=== PATIENT | female | born 1990 | race Caucasian/White ===

== ENCOUNTER → 2018-10-13 12:59 | Outpatient (CLI) | payer MEDICAID, SELFPAY ==
[2018-10-13 10:38] VITALS: BMI 30.9
[2018-10-13 13:23] LABS: Mucous, Urine 0 SEEN /hpf (<or=2+); Red Blood Cells-Urine 0 SEEN /hpf (0-5)
[2018-10-13 13:28] LABS: Color, Urine Yellow (Yellow); Glucose, Dipstick Normal (Normal); Ketone-Dipstick Negative (Negative); Leukocyte Esterase-Dipstick 25 /ul (Negative); Nitrite-Dipstick Positive (Negative); Occult Blood-Urine Negative /ul (Negative); Protein-Dipstick Negative (Negative); Urine Bilirubin Dipstick Negative (Negative); Urine Clarity Sl. Cloudy (Clear); Urine Urobilinogen Normal (Normal)
[2018-10-13 13:42] LABS: Bacteria 2+ /hpf (None Seen); Squamous Epithelial Cells - UA 5-10 SEEN /hpf (5-10); White Blood Cells 0-5 SEEN /hpf (0-5)
[2018-10-13 16:51] LABS: Probe Check PASS; Sample Adequacy Control PASS; Specimen Processing Control PASS; Trichomonas Vag DNA by PCR Negative (Negative)
== END ==
PROVIDERS: Family Provider Internal Medicine; PCP Internal Medicine; Referring Provider Nurse Practitioner Family; Visit Provider Nurse Practitioner Family
DX: N89.8 Other specified noninflammatory disorders of vagina (principal)
CPT/HCPCS: 81001; 87661

== ENCOUNTER → 2018-11-03 07:40 | Outpatient (CLI) | payer MEDICAID, SELFPAY ==
[2018-10-13 10:38] VITALS: BMI 30.9
[2018-11-03 09:30] LABS: Anion Gap 8 (5-15); BUN 16 mg/dL (7-18); BUN/Creat Ratio 19.4 RATIO (10-20); Calcium,Total 8.1 mg/dL (8.5-10.1); Chloride 106 mmol/L (98-107); Creatinine, Serum 0.82 mg/dL (0.55-1.02); EST Glomerular Filtration Rate 86 mL/min (>60); Est Glom Filt Rate - Afr Amer 104 mL/min (>60); Glucose 126 mg/dL (74-106); Potassium 3.7 mmol/L (3.5-5.1); Sodium Level 140 mmol/L (136-145)
== END ==
PROVIDERS: Family Provider Internal Medicine; PCP Internal Medicine; Referring Provider Nurse Practitioner Family; Visit Provider Nurse Practitioner Family
DX: I10 Essential (primary) hypertension (principal)
CPT/HCPCS: 36415; 80048

== ENCOUNTER → 2018-12-09 11:16 | Outpatient (CLI) | payer MEDICAID, SELFPAY ==
[2018-12-09 10:33] VITALS: BMI 33.8
[2018-12-09 12:26] LABS: Absolute Lymphocyte Count 2.87 X10^3/ul (0.83-4.51); Absolute Neutrophil Count 5.9 X10^3/uL (2.0-7.7); Basophil# 0.02 X10^3/uL; Basophil% 0.2 % (0-1); Hematocrit 40.5 % (37-47); Lymphocyte # 2.87 X10^3/ul (4.0); Mean Corp Hgb Conc 32.1 g/gl (32-36); Mean Corpuscular Hgb 27.8 pg (27.0-32.0); Mean Corpuscular Volume 86.7 fL (81-99); Mean Platelet Vol. 9.3 fl (6.2-12.0); Monocyte# 0.69 X10^3/uL; Monocyte% 7.2 % (0-10); Neutrophil # 5.87 X10^3/uL (2.7-7.7); Neutrophil % 61.3 % (47-70); Platelet Count 317 K/mm3 (150-450); RBC Distribution Width CV 13.5 % (11.6-14.6); RBC Distribution Width SD 42.7 fl (35.1-43.9); Red Blood Count 4.67 M/mm3 (4.2-5.4); White Blood Count 9.6 K/mm3 (4.4-11.0)
[2018-12-09 12:33] LABS: POSITIVE COUNT NO; POSITIVE DIFFERENTIAL NO; POSITIVE MORPHOLOGY NO
[2018-12-09 12:35] LABS: Anion Gap 5 (5-15); BUN 15 mg/dL (7-18); BUN/Creat Ratio 22.4 RATIO (10-20); Calcium,Total 8.5 mg/dL (8.5-10.1); Chloride 107 mmol/L (98-107); Creatinine, Serum 0.67 mg/dL (0.55-1.02); EST Glomerular Filtration Rate 109 mL/min (>60); Est Glom Filt Rate - Afr Amer 132 mL/min (>60); Glucose 92 mg/dL (74-106); Potassium 3.9 mmol/L (3.5-5.1); Sodium Level 139 mmol/L (136-145)
== END ==
PROVIDERS: Family Provider Internal Medicine; PCP Internal Medicine; Visit Provider Internal Medicine
DX: I10 Essential (primary) hypertension (principal); F31.9 Bipolar disorder, unspecified; Z51.81 Encounter for therapeutic drug level monitoring
CPT/HCPCS: 36415; 80048; 85025; 87210; 87491; 87591

== ENCOUNTER → 2018-12-15 08:16 | Outpatient (CLI) | payer MEDICAID, SELFPAY ==
[2018-12-09 10:33] VITALS: BMI 33.8
[2018-12-15 15:27] LABS: Chlamydia Trachomatis by PCR Negative (Negative); Neisserai gonorrhoeae by PCR Negative (Negative); Probe Check PASS
[2018-12-15 17:05] LABS: Probe Check PASS; Sample Adequacy Control PASS; Specimen Processing Control PASS; Trichomonas Vag DNA by PCR Negative (Negative)
== END ==
PROVIDERS: Nurse Practitioner Family; Family Provider Internal Medicine; PCP Internal Medicine; Visit Provider Internal Medicine
DX: Z72.51 High risk heterosexual behavior (principal)
CPT/HCPCS: 87491; 87591; 87661

== ENCOUNTER 2019-06-22 13:24 | Emergency (ER) | payer OTHER, SELFPAY ==
[2018-12-09 10:33] VITALS: BMI 33.8
[2019-06-22 13:25] VITALS: BP 142/95; PULSE 95; RESP 14; TEMP 36.8; O2SAT 97; BMI 35.6
--- NOTE | 2019-06-22 15:51 | CT_ITS ---
STUDY: CT ABDOMEN AND PELVIS WITHOUT CONTRAST REASON FOR EXAM: Female, 29 years old. Left flank pain RADIATION DOSAGE (If Supplied By Facility): CTDIvol = ( 12.94 ) mGy, DLP = ( 678.87 ) mGycm TECHNIQUE: Transaxial images were obtained from the dome of the diaphragm to the symphysis pubis without oral contrast, and without intravenous contrast. Sagittal and coronal images were reconstructed. Individualized dose optimization techniques were used for this CT. COMPARISON: None. FINDINGS: The visualized lung bases are unremarkable. The visualized portions of the heart are within normal limits. Normal liver. Normal gallbladder and extrahepatic biliary system. Normal spleen. Normal pancreas. Normal bilateral adrenal glands. Normal right kidney. Mild left perinephric stranding. No radiodense stones are identified. Normal visualized stomach. Normal small intestine. Increased stool throughout the colon. The appendix is visualized and appears normal. Normal abdominal aorta. Normal inferior vena cava. Normal retroperitoneum. Normal urinary bladder. Uterus normal. Tampon in the vaginal vault. Normal abdominal wall. Normal osseous structures. CT/Abdomen/Pelvis without Cont IMPRESSION: Mild left perinephric stranding. No radiodense urolithiasis. Possible pyelonephritis. Electronically Signed: Jamarcus Godoy MD at 18:46 EDT , Service support ,
--- NOTE | 2019-06-22 15:56 | ED.VIS.GEN ---
History of Present Illness Chief Complaint: Flank Pain Informant: Patient Onset: Days Context: Gradual Onset Timing: Intermittent Current Severity: Moderate Maximum Severity: Moderate Narrative: The patient presents to the emergency department with left-sided flank pain and abdominal pain. The patient was in her normal state of health. She states that she began to have some pain that she noticed on Wednesday. It was in her left upper back. She states since then, it will come and go but has been more constant over the past 24 hours. She denies any nausea or vomiting. She denies any hematuria. The patient does have history of kidney stone, but states they have always been on the right. She has not found anything that improve the pain. She is otherwise been in her normal state of health. Prior similar symptoms: No Recent Illness/Hospitalization: No Past Medical History - Allergies and Home Meds Allergies/Adverse Reactions: Allergies hydrocodone Allergy (Severe, Verified 06/22/19 13:28) Itching Penicillins Allergy (Severe, Verified 06/22/19 13:28) hives amoxicillin Allergy (Unknown, Verified 06/22/19 13:28) Rash Primary Care Physician: Marichuy Johnson MD [Primary Care Provider] - Prior records reviewed: Yes Past Medical History: - - Kidney stone Lives: With Family Smoking Status: Current every day smoker Review of Systems General: Denies: Chills, Fever, Sweats Eyes: Denies: Visual changes - bilaterally, Diplopia ENT: Denies: Rhinorrhea, Sore throat Cardiovascular: Denies: Chest pain, Palpitations Respiratory: Denies: Dyspnea, Cough, Dyspnea on exertion Gastrointestinal: Reports: Abdominal pain. Denies: Nausea, Vomiting, Diarrhea, Melena, Hematochezia Genitourinary: Denies: Dysuria, Hematuria, Frequency Musculoskeletal: Reports: Back pain. Denies: Extremity Pain Skin: Denies: Rash, Wounds Neurological: Denies: Headache, Weakness, Numbness Physical Exam Vital Signs/Narrative: Vital Signs Temp Pulse Resp BP Pulse Ox 06/22/19 13:25 98.2 F 95 14 142/95 H 97 Inital Vital Signs reviewed: Yes General: Well nourished, Well developed, No Acute Distress Head: Normocephalic, Atraumatic Eyes: Perrl, EOMI ENT: Moist mucous membranes, No rhinorrhea Neck: Supple, Nontender Cardiovascular: Regular rate, Regular rhythm, No murmurs Respiratory: No distress, CTA bilaterally, Chest nontender Abdomen: Soft, Nontender, Nondistended, Normal bowel sounds Back: Nontender, Normal Inspection Extremities: Nontender, No edema Skin: Normal color, No rash Neurological: Alert, Oriented x3, Cranial nerves II-XII grossly intact, Normal Strength, Normal Sensation Psychological: Normal affect, Normal Mood Diagnostic/Tx/Re-eval Clinical Impression(s) from Imaging Studies Abdomen/Pelvis CT 06/22/19 15:51 IMPRESSION: Mild left perinephric stranding. No radiodense urolithiasis. Possible pyelonephritis. Electronically Signed: Jamarcus Godoy MD at 18:46 EDT , Service support , Abnormal Lab Results 06/22/19 06/22/19 06/22/19 16:12 16:12 17:36 WBC RBC Hgb Hct MCV MCH MCHC RDW Std Deviation RDW Coeff of Walt Plt Count MPV Immature Gran % (Auto) Neut % (Auto) Lymph % (Auto) [place] % (Auto) Eos % (Auto) Baso % (Auto) Absolute Neuts (auto) Absolute Lymphs (auto) Nucleated RBC % Sodium Potassium Chloride Carbon Dioxide Anion Gap BUN Creatinine Estim Creat Clear Calc Est GFR (MDRD) Af Amer Est GFR (MDRD) Non-Af BUN/Creatinine Ratio Glucose Calcium Serum , Qual NEGATIVE Urine Color Yellow Urine Clarity Cloudy Urine pH 5.0 Ur Specific [place] 1.015 Urine Protein 15 H Urine Glucose (UA) Normal Urine Ketones 5 H Urine Occult Blood 150 H Urine Nitrite Positive H Urine Bilirubin Negative Urine Urobilinogen Normal Ur Leukocyte Esterase 500 H Urine RBC 0 SEEN Urine WBC 10-25 SEEN Ur Squamous Epith Cells 0 SEEN Urine Bacteria 3+ Urine Mucus 1+ Urine Test Negative 06/22/19 06/22/19 17:36 17:36 WBC 12.8 H RBC 5.02 Hgb 13.9 Hct 43.5 MCV 86.7 MCH 27.7 MCHC 32.0 RDW Std Deviation 38.5 RDW Coeff of Walt 12.0 Plt Count 251 MPV 10.2 Immature Gran % (Auto) 0.500 Neut % (Auto) 74.2 H Lymph % (Auto) 17.4 L [place] % (Auto) 7.4 Eos % (Auto) 0.2 Baso % (Auto) 0.3 Absolute Neuts (auto) 9.5 H Absolute Lymphs (auto) 2.24 Nucleated RBC % 0 Sodium 139 Potassium 3.5 Chloride 109 H Carbon Dioxide 26.0 Anion Gap 4 L BUN 6 L Creatinine 0.59 Estim Creat Clear Calc 104.25 Est GFR (MDRD) Af Amer 153 Est GFR (MDRD) Non-Af 127 BUN/Creatinine Ratio 10.2 Glucose 85 Calcium 8.7 Serum , Qual Urine Color Urine Clarity Urine pH Ur Specific [place] Urine Protein Urine Glucose (UA) Urine Ketones Urine Occult Blood Urine Nitrite Urine Bilirubin Urine Urobilinogen Ur Leukocyte Esterase Urine RBC Urine WBC Ur Squamous Epith Cells Urine Bacteria Urine Mucus Urine Test - Medical Decision Making The patient denies any fevers or chills. IV was established. Labs were obtained. She does have mild leukocytosis. Her urine does show evidence of infection. I did want to rule out infected kidney stone. Patient underwent CT imaging. It does show evidence of mild pyelonephritis but no evidence of obstructive process. Culture was added to her urine. Based on antibiotic allergy patient will be treated with Bactrim. At this point, I do feel that she is safe for outpatient therapy. She is comfortable with this plan of care will be discharged home. Impression 1. Pyelonephritis ED Disposition - Plan for ED Patient: Instructions: PYELONEPHRITIS, Female (Adult) Prescriptions: Smz/Tmp Ds [Bactrim Ds] 1 tab PO BID #14 tab Prescription Printed Oxycodone HCl/Acetaminophen [Percocet 5/325] 1 tab PO Q6H PRN PRN 3 Days #10 tab PRN Reason: Pain Prescription Printed Ondansetron [Zofran Odt] 4 mg PO Q8H PRN PRN #10 tab PRN Reason: Nausea Prescription Printed Referrals: Marichuy Johnson MD [Primary Care Provider] -
[2019-06-22 16:15] VITALS: RESP 16
[2019-06-22 16:16] LABS: Red Blood Cells-Urine 0 SEEN /hpf (0-5); Squamous Epithelial Cells - UA 0 SEEN /hpf (5-10)
[2019-06-22 16:19] LABS: Color, Urine Yellow (Yellow); Glucose, Dipstick Normal (Normal); Ketone-Dipstick 5 mg/dl (Negative); Leukocyte Esterase-Dipstick 500 /ul (Negative); Nitrite-Dipstick Positive (Negative); Occult Blood-Urine 150 /ul (Negative); Protein-Dipstick 15 mg/dl (Negative); Specific Gravity, Urine 1.015 (1.002-1.030); Urine Bilirubin Dipstick Negative (Negative); Urine Clarity Cloudy (Clear); Urine Urobilinogen Normal (Normal)
[2019-06-22 16:26] LABS: Bacteria 3+ /hpf (None Seen); Mucous, Urine 1+ /hpf (<or=2+); White Blood Cells 10-25 SEEN /hpf (0-5)
[2019-06-22] MEDS: Ondansetron 4 MG/2 ML Vial IV (16:49)
[2019-06-22] MEDS: 0.9% Normal Saline 1,000 ML 250 ML IV (16:49)
[2019-06-22] MEDS: Morphine 4 MG/ML Syringe IV (16:51)
[2019-06-22] MEDS: Ketorolac 30 MG/ML Syringe IV (16:53)
[2019-06-22 16:55] VITALS: BP 126/108; PULSE 90; RESP 16; O2SAT 100
[2019-06-22] MEDS: DiphenhydrAMINE 50 MG/ML Syringe 25 MG IV (17:00)
[2019-06-22 17:46] LABS: Absolute Lymphocyte Count 2.24 X10^3/uL (0.83-4.51); Absolute Neutrophil Count 9.5 X10^3/uL (2.0-7.7); Basophil# 0.04 X10^3/uL; Basophil% 0.3 % (0-1); Eosinophil# 0.03 X10^3/uL; Eosinophils% 0.2 % (0-5); Hematocrit 43.5 % (37-47); Hemoglobin 13.9 g/dL (12.0-15.0); Lymphocyte # 2.24 X10^3/ul (4.0); Lymphocyte % 17.4 % (19-41); Mean Corpuscular Hgb 27.7 pg (27.0-32.0); Mean Corpuscular Volume 86.7 fL (81-99); Mean Platelet Vol. 10.2 fl (6.2-12.0); Monocyte# 0.95 X10^3/uL; Monocyte% 7.4 % (0-10); NRBC Flagged by Analyzer 0 % (0-5); Neutrophil # 9.52 X10^3/uL (2.7-7.7); Neutrophil % 74.2 % (47-70); Platelet Count 251 K/mm3 (150-450); RBC Distribution Width SD 38.5 fl (35.1-43.9); Red Blood Count 5.02 M/mm3 (4.2-5.4); White Blood Count 12.8 K/mm3 (4.4-11.0)
[2019-06-22 17:56] LABS: Internal QC Validated? YES +Cl - CLEAR BKGD; Pregnancy, Urine Negative Negative
[2019-06-22 18:00] LABS: Anion Gap 4 (5-15); BUN 6 mg/dL (7-18); BUN/Creat Ratio 10.2 RATIO (10-20); Calcium,Total 8.7 mg/dL (8.5-10.1); Chloride 109 mmol/L (98-107); Creatinine, Serum 0.59 mg/dL (0.55-1.02); EST Glomerular Filtration Rate 127 mL/min (>60); Est Glom Filt Rate - Afr Amer 153 mL/min (>60); Estimated Creatinine Clearance 104.25 ml/min; Glucose 85 mg/dL (74-106); Potassium 3.5 mmol/L (3.5-5.1); Sodium Level 139 mmol/L (136-145)
[2019-06-22 18:14] LABS: Internal QC Validated? YES +Cl - CLEAR BKGD; Pregnancy, Serum, hCG Quali. NEGATIVE Negative
[2019-06-22 18:19] VITALS: RESP 16
[2019-06-22 19:12] VITALS: RESP 16
== END 2019-06-22 19:13 | disposition home or self-care (01) ==
LOC: ED 16:14
PROVIDERS: Emergency Provider Emergency Medicine; Family Provider Internal Medicine; PCP Internal Medicine
DX: N12 Tubulo-interstitial nephritis, not specified as acute or chronic (principal); Z87.442 Personal history of urinary calculi; F17.200 Nicotine dependence, unspecified, uncomplicated
CPT/HCPCS: 36415; 74176; 80048; 81001; 81025; 84703; 85025; 87086; 87088; 87186; 96361; 96374; 96375; 99285; J7030; A4216; J2405

== ENCOUNTER 2020-07-02 17:12 | Emergency (ER) | payer OTHER, SELFPAY ==
[2020-07-02 17:13] VITALS: BP 160/104; PULSE 98; RESP 17; TEMP 36.2; O2SAT 100; BMI 34.4
--- NOTE | 2020-07-02 17:26 | ED.VIS.GEN ---
History of Present Illness Chief Complaint: Flank Pain Informant: Patient Narrative: 30-year-old female with no significant past medical history presents with concern for right back pain. States it began 2 days ago. States it is aching and worse with movement. No relieving factors. Denies any urinary symptoms. Denies any nausea or vomiting. Denies any hematuria. Denies any trauma. Denies any vaginal bleeding or discharge. Past Medical History - Allergies and Home Meds Allergies/Adverse Reactions: Allergies hydrocodone Allergy (Severe, Verified 07/02/20 17:12) Itching Penicillins Allergy (Severe, Verified 07/02/20 17:12) hives amoxicillin Allergy (Unknown, Verified 07/02/20 17:12) Rash Primary Care Physician: Marichuy Johnson MD [Primary Care Provider] - Prior records reviewed: Yes Past Medical History: - - HTN, bipolar, anxiety Lives: With Family Smoking Status: Current every day smoker Alcohol: None Drugs: None Review of Systems General: Denies: Chills, Fever, Sweats Eyes: Denies: Visual changes - bilaterally, Diplopia ENT: Denies: Rhinorrhea, Sore throat Cardiovascular: Denies: Chest pain, Palpitations Respiratory: Denies: Dyspnea, Cough, Dyspnea on exertion Gastrointestinal: Denies: Abdominal pain, Nausea, Vomiting, Diarrhea, Melena, Hematochezia Genitourinary: Denies: Dysuria, Hematuria, Frequency Musculoskeletal: Reports: Back pain. Denies: Extremity Pain Skin: Denies: Rash, Wounds Neurological: Denies: Headache, Weakness, Numbness Physical Exam Vital Signs/Narrative: Vital Signs Temp Pulse Resp BP Pulse Ox 07/02/20 17:13 97.1 F L 98 17 160/104 H 100 Inital Vital Signs reviewed: Yes General: Well nourished, Well developed, No Acute Distress Head: Normocephalic, Atraumatic Eyes: Perrl, EOMI ENT: Moist mucous membranes, No rhinorrhea Neck: Supple, Nontender Cardiovascular: Regular rate, Regular rhythm, No murmurs Respiratory: No distress, CTA bilaterally, Chest nontender Abdomen: Soft, Nontender, Nondistended, Normal bowel sounds Back: Normal Inspection, - - TTP over the right paraspinal musculature. No midline tenderness. No overlying skin changes. Extremities: Nontender, No edema Skin: Normal color, No rash Neurological: Alert, Oriented x3, Cranial nerves II-XII grossly intact, Normal Strength, Normal Sensation Psychological: Normal affect, Normal Mood Diagnostic/Tx/Re-eval Laboratory Data 07/02/20 17:25 Urine Color Yellow Urine Clarity Cloudy Urine pH 5.0 Ur Specific [place] 1.025 Urine Protein 15 H Urine Glucose (UA) Normal Urine Ketones 5 H Urine Occult Blood 50 H Urine Nitrite Positive H Urine Bilirubin Negative Urine Urobilinogen Normal Ur Leukocyte Esterase 100 H Urine RBC 0 SEEN Urine WBC 5-10 SEEN Ur Squamous Epith Cells 5-10 SEEN Urine Bacteria 4+ Urine Mucus 1+ Urine Test Negative - Medical Decision Making Patient appears well nontoxic. Vital signs within normal limits. Patient given Toradol and cyclobenzaprine. Patient's urine shows evidence of infection. Low concern for ureterolithiasis. Patient will be given 4 times daily Keflex and Naprosyn for home. Asked to return for new or worsening symptoms. Patient agreeable and discharged home in stable condition. Impression: 1. Early pyelonephritis ED Disposition - Plan for ED Patient: Disposition: Home or Assisted Living Instructions: ED Pyelonephritis Female Adult Prescriptions: Cephalexin [Keflex] 500 mg PO Q6 #28 cap Prescription Printed Naproxen [Naprosyn] 500 mg PO BID #14 tab Prescription Printed Referrals: Marichuy Johnson MD [Primary Care Provider] - 2 Days
[2020-07-02 17:40] LABS: Red Blood Cells-Urine 0 SEEN /hpf (0-5)
[2020-07-02] MEDS: Ketorolac 15 MG/ML Vial IM (18:02)
[2020-07-02] MEDS: cycloBENZAPRine HCl 10 MG Tablet PO (18:02)
[2020-07-02 18:17] LABS: Color, Urine Yellow (Yellow); Glucose, Dipstick Normal (Normal); Ketone-Dipstick 5 mg/dl (Negative); Leukocyte Esterase-Dipstick 100 /ul (Negative); Nitrite-Dipstick Positive (Negative); Occult Blood-Urine 50 /ul (Negative); Protein-Dipstick 15 mg/dl (Negative); Specific Gravity, Urine 1.025 (1.002-1.030); Urine Bilirubin Dipstick Negative (Negative); Urine Clarity Cloudy (Clear); Urine Urobilinogen Normal (Normal)
[2020-07-02 18:21] LABS: Internal QC Validated? YES +Cl - CLEAR BKGD; Pregnancy, Urine Negative Negative
[2020-07-02 18:36] LABS: Bacteria 4+ /hpf (None Seen); Mucous, Urine 1+ /hpf (<or=2+)
[2020-07-02 18:38] LABS: Squamous Epithelial Cells - UA 5-10 SEEN /hpf (5-10); White Blood Cells 5-10 SEEN /hpf (0-5)
[2020-07-02] MEDS: Cephalexin 250 MG Capsule 500 MG PO (19:04)
== END 2020-07-02 19:07 | disposition home or self-care (01) ==
PROVIDERS: Emergency Provider Emergency Medicine; PCP Internal Medicine
DX: N12 Tubulo-interstitial nephritis, not specified as acute or chronic (principal); I10 Essential (primary) hypertension; F17.200 Nicotine dependence, unspecified, uncomplicated
CPT/HCPCS: 81001; 81025; 96372; 99281

== ENCOUNTER 2020-08-01 16:38 | Emergency (ER) | payer OTHER, SELFPAY ==
[2020-08-01 16:39] VITALS: BP 145/90; PULSE 84; RESP 18; TEMP 36.3; O2SAT 97; BMI 34.4
--- NOTE | 2020-08-01 17:51 | ED.VISSUMM ---
- ER Visit Summary Date of Service: 08/01/20 Chief Complaint: Dental pain, sore throat, and headache History of Present Illness: The patient is a 30 F who presents with dental pain that is been getting worse over the past 3 days. Patient states the pain is over the left lower molar area. Patient describes the pain as throbbing. Patient states pain is worse with any chewing. Patient also admits to a sore throat and headache. Patient admits to nausea but denies any vomiting. Patient denies any fevers but admits to subjective chills. Patient has not seen her dentist for this. Physical Examination: Vital signs are stable. Patient is afebrile. Patient is in no acute distress. Oral mucosa is pink and moist. Oropharynx is clear. Airway is patent. There are multiple dental caries noted over the left lower molars. There is gingival edema in this area. There is no fluctuance or evidence of any abscess. There is no sublingual edema or evidence of Nic's angina. Neck is supple. Trachea is midline. There is no JVD. There is some tender anterior cervical lymphadenopathy on the left. Emergency Department Course and Treatment: Patient was given a dose of clindamycin and Naprosyn here. Patient was given prescriptions for clindamycin and Naprosyn. Patient was instructed to follow-up with her dentist in 5 to 7 days. Patient understood and was agreeable with the plan. All questions were answered. Disposition: Discharge home Impression: 1. Infected dental caries This note was generated with [employer] dictation software. It may contain incorrect words, spelling, and punctuation that were not noted in review of the chart prior to signing ED Disposition - Plan for ED Patient: Disposition: Home or Assisted Living Diagnosis: Infected dental caries Instructions: ED [facility] Dental Prescriptions: Clindamycin HCl [Cleocin] 300 mg PO Q6H #40 cap Prescription Printed Naproxen [Naprosyn] 500 mg PO BID PRN #20 tab Prescription Printed Referrals: Marichuy Johnson MD [Primary Care Provider] - Dentist,Your [STAFF PHYSICIAN] - 5-7 Days
[2020-08-01] MEDS: Clindamycin HCl 150 MG Capsule 300 MG PO (18:24)
[2020-08-01] MEDS: Naproxen 250 MG Tablet 500 MG PO (18:24)
== END 2020-08-01 18:26 | disposition home or self-care (01) ==
LOC: ED 17:53
PROVIDERS: Emergency Provider Emergency Medicine; PCP Internal Medicine
DX: K02.9 Dental caries, unspecified (principal); K04.7 Periapical abscess without sinus; Z72.0 Tobacco use
CPT/HCPCS: 99283

== ENCOUNTER → 2021-01-03 | Outpatient (CLI) | payer OTHER, SELFPAY ==
[2021-01-03 13:19] VITALS: BMI 34.3
== END | disposition home or self-care (01) ==
LOC: LABSPEC 15:46
PROVIDERS: PCP Internal Medicine; Visit Provider Physician Assistant Surgical
DX: R05 Cough (principal)
CPT/HCPCS: 87635; U0002

== ENCOUNTER 2021-11-16 16:01 | Emergency (ER) | payer SELFPAY ==
[2021-11-16 16:02] VITALS: BP 143/102; PULSE 95; RESP 16; TEMP 36.8; O2SAT 100; BMI 37.4
[2021-11-16 16:23] VITALS: BP 134/87
--- NOTE | 2021-11-16 16:34 | CT_ITS ---
INDICATION: Kidney Stone EXAMINATION: CT Abdomen And Pelvis W/O Contrast Injection TECHNIQUE: Helically acquired images were obtained of the abdomen and pelvis without the use of IV contrast. A radiation dose optimization technique was used for this scan. Oral contrast: None. COMPARISON: None FINDINGS: Evaluation of the solid organs and vascular structures is limited without intravenous contrast. Visualized lung bases: Unremarkable Liver: Unremarkable Gallbladder: Unremarkable Spleen: Unremarkable Pancreas: Unremarkable Adrenal Glands: Unremarkable Kidneys: Obstructing 3 mm stone in the distal left ureter with associated mild left hydroureteronephrosis. Vasculature: Unremarkable GI Tract: Unremarkable Lymphadenopathy: None Peritoneum: No ascites. Bladder: Unremarkable Reproductive organs: Unremarkable Bones/Soft tissues: No suspicious osseous or soft tissue lesions CT/Abdomen/Pelvis without Cont IMPRESSION: Obstructing 3 mm stone in the distal left ureter with associated mild left hydroureteronephrosis. Electronically Signed: Linus Myers MD at 17:53 EST ,
--- NOTE | 2021-11-16 16:37 | EDS_ITS ---
HPI History of Present Illness Chief Complaint: Back Narrative Narrative: Patient presents with right flank pain and low back pain that she is had since Wednesday, 2 days ago. She states it was sudden onset on Wednesday, described as a dull, achy pain that returns sharp and stabbing. It waxes and wanes. She denies any dysuria or hematuria. No fevers or chills. No nausea or vomiting. No problems with bowel movements. She has had problems with kidney infections and kidney stones previously. She states she last passed a kidney stone last year sometime. She has not follow-up with urology. She presents because of the pain. She took Tylenol this morning without relief. Last menstrual period was [address] [facility] Medical History Anemia Anxiety and depression Bipolar 1 disorder Hypertension Kidney stones Migraines PTSD (post-traumatic stress disorder) Pyelonephritis Home Medications ketorolac 10 mg PO TID PRN 5 Days #15 tab 11/16/21 [Rx Last Taken Unknown] sulfamethoxazole-trimethoprim [Bactrim DS] 1 tab PO BID #10 tab 11/16/21 [Rx Last Taken Unknown] tamsulosin [Flomax] 0.4 mg PO DAILY #7 cap 11/16/21 [Rx Last Taken Unknown] Allergy/AdvReac Type Severity Reaction Status Date / Time hydrocodone Allergy Severe Itching Verified 11/16/21 16:02 Penicillins Allergy Severe hives Verified 11/16/21 16:02 amoxicillin Allergy Unknown Rash Verified 11/16/21 16:02 Family History Father Diabetes Hypertension Mother Anxiety with depression Sister Diabetes Brother Diabetes Surgical History H/O tubal ligation History of 3 sections Social History Smoking Status: Current every day smoker tobacco type: cigarettes Tobacco: How many years used: 10 alcohol intake: former year quit: 2017 substance use type: former substance user Date of last use: 04/24/2018 and opiates what type of physical activity do you participate in: aerobics and weight training frequency: 3-4 times per week ROS ROS ED ROS Narrative Constitutional: No fever, no chills. HEENT: No sore throat. No neck pain. No loss of vision. No rhinorrhea. Cardiovascular: No chest pain. No palpitations. No pedal edema. Respiratory: No cough, no shortness of breath. Abdominal: No abdominal pain. No nausea. No vomiting. Genitourinary: No dysuria. No hematuria. Right flank pain. Musculoskeletal: No myalgias. No arthralgias. Right low back pain. Neurologic: No headaches. No dizziness. No lightheadedness. Skin: No rash. No change in color. Psychiatric: No depression. No anxiety. EXAM Physical Exam Narrative Exam Narrative: Afebrile. Vital signs noted. HEENT: Normocephalic. Atraumatic. PERRL, EOMI. Neck soft and supple. No point tenderness or step off. Cardiovascular: Regular rate and rhythm. No murmurs, rubs, or gallops appreciated. Respiratory: No tachypnea. Lungs clear to auscultation bilaterally. Gastrointestinal: Abdomen soft, nontender, with normoactive bowel sounds. No rebound or guarding. Mild tenderness to percussion right flank/low back. Neurological: Awake. Alert. Nonfocal, nonlateralizing. Skin: No rash. Normal color. No pallor. Musculoskeletal: No pedal edema. Full range of motion extremities. Const Vital Signs: 11/16/21 16:02 11/16/21 16:23 Temperature 98.3 F Temperature Source Temporal Pulse Rate 95 Respiratory Rate 16 Blood Pressure 143/102 H 134/87 H Blood Pressure Mean 115 102 Pulse Ox 100 Oxygen Delivery Method Room Air MDM MDM MDM Narrative Medical decision making narrative: Kidney stone work-up was pursued. After negative test she will be administered Toradol for analgesia. She is normal count of 8.2. CBC is unremarkable. Basic metabolic panel shows chloride of 110 but otherwise unremarkable with a normal creatinine of 0.62. Urinalysis is positive for nitrites, RBCs 0-5 with WBCs 5-10 but there are squamous epithelial cells. Given the fact that her CT of the abdomen and pelvis does show a left-sided 3 mm distal ureteral stone, I will treat her with antibiotics for 5 days with Bactrim. Urine culture is currently pending. She will be given prescription for Toradol, Flomax, and for Bactrim as she states she cannot tolerate stronger pain medications and usually takes Tylenol. At this point in time, I feel she be discharged safely home to follow-up with urology. She is being put on antibiotics more as prophylaxis. Return instructions to the emergency department were reviewed. Disposition is discharged home in stable condition. Lab Data Attestation: I reviewed the patient's lab results. Labs: Laboratory Results - last 24 hr 11/16/21 11/16/21 11/16/21 17:00 17:20 17:20 WBC 8.2 RBC 4.47 Hgb 12.5 Hct 38.3 MCV 85.7 MCH 28.0 MCHC 32.6 RDW Std Deviation 40.3 RDW Coeff of Walt 12.8 Plt Count 296 MPV 9.9 Immature Gran % (Auto) 0.500 Neut % (Auto) 62.0 Lymph % (Auto) 27.7 [place] % (Auto) 8.3 Eos % (Auto) 1.1 Baso % (Auto) 0.4 Absolute Neuts (auto) 5.1 Absolute Lymphs (auto) 2.27 Nucleated RBC % 0 Sodium 141 Potassium 3.6 Chloride 110 H Carbon Dioxide 27.0 Anion Gap 4 L BUN 10 Creatinine 0.62 Estim Creat Clear Calc 97.39 Est GFR (MDRD) Af Amer 141 Est GFR (MDRD) Non-Af 116 BUN/Creatinine Ratio 16.0 Glucose 99 Calcium 8.7 Urine Color Yellow Urine Clarity Cloudy Urine pH 5.0 Ur Specific [place] 1.025 Urine Protein 15 H Urine Glucose (UA) Normal Urine Ketones Negative Urine Occult Blood 10 H Urine Nitrite Positive H Urine Bilirubin Negative Urine Urobilinogen Normal Ur Leukocyte Esterase 100 H Urine RBC 0-5 SEEN Urine WBC 5-10 SEEN Ur Squamous Epith Cells 5-10 SEEN Urine Bacteria 4+ Urine Mucus 3+ Radiography Diagnostic Testing: Clinical Impression(s) from Imaging Studies Abdomen/Pelvis CT 11/16/21 16:34 IMPRESSION: Obstructing 3 mm stone in the distal left ureter with associated mild left hydroureteronephrosis. Electronically Signed: Linus Myers MD at 17:53 EST , Discharge Plan Triage Chief Complaint: Back ED Provider: Nicholas Dooley Dx/Rx/DC Orders Clinical Impression: Ureterolithiasis, Hydronephrosis, Back pain Instructions: ED Kidney Stone w/ Colic Prescriptions: New ketorolac 10 mg tablet 10 mg PO TID PRN (Reason: pain) 5 Days Qty: 15 RF: 0 tamsulosin [Flomax] 0.4 mg capsule 0.4 mg PO DAILY Qty: 7 RF: 0 sulfamethoxazole-trimethoprim [Bactrim DS] 800-160 mg tablet 1 tab PO BID Qty: 10 RF: 0 Stand Alone Forms: ED Work / School Excuse Primary Care Provider: Marichuy Johnson Referrals: Marichuy Johnson MD [Primary Care Provider] - Kristi Gomez MD [STAFF PHYSICIAN] - 3-5 Days Disposition Disposition: Home, Self Care
[2021-11-16 17:15] LABS: Color, Urine Yellow (Yellow); Glucose, Dipstick Normal (Normal); Ketone-Dipstick Negative (Negative); Leukocyte Esterase-Dipstick 100 /ul (Negative); Nitrite-Dipstick Positive (Negative); Occult Blood-Urine 10 /ul (Negative); Protein-Dipstick 15 mg/dl (Negative); Specific Gravity, Urine 1.025 (1.002-1.030); Urine Bilirubin Dipstick Negative (Negative); Urine Clarity Cloudy (Clear); Urine Urobilinogen Normal (Normal)
[2021-11-16] MEDS: 0.9% Normal Saline 1,000 ML 250 ML IV (17:22)
[2021-11-16] MEDS: Ketorolac 15 MG/ML Vial IV (17:22)
[2021-11-16 17:24] LABS: Bacteria 4+ /hpf (None Seen); Mucous, Urine 3+ /hpf (<or=2+)
[2021-11-16 17:26] LABS: White Blood Cells 5-10 SEEN /hpf (0-5)
[2021-11-16 17:27] LABS: Squamous Epithelial Cells - UA 5-10 SEEN /hpf (5-10)
[2021-11-16 17:28] LABS: Red Blood Cells-Urine 0-5 SEEN /hpf (0-5)
[2021-11-16 17:40] LABS: Absolute Lymphocyte Count 2.27 X10^3/uL (0.83-4.51); Absolute Neutrophil Count 5.1 X10^3/uL (2.0-7.7); Basophil# 0.03 X10^3/uL; Basophil% 0.4 % (0-1); Eosinophil# 0.09 X10^3/uL; Eosinophils% 1.1 % (0-5); Hematocrit 38.3 % (37-47); Hemoglobin 12.5 g/dL (12.0-15.0); Lymphocyte # 2.27 X10^3/ul (0.83-4.51); Lymphocyte % 27.7 % (19-41); Mean Corp Hgb Conc 32.6 g/dL (32-36); Mean Corpuscular Volume 85.7 fL (81-99); Mean Platelet Vol. 9.9 fl (6.2-12.0); Monocyte# 0.68 X10^3/uL; Monocyte% 8.3 % (0-10); NRBC Flagged by Analyzer 0 % (0-5); Neutrophil # 5.09 X10^3/uL (2.7-7.7); Platelet Count 296 K/mm3 (150-450); RBC Distribution Width CV 12.8 % (11.6-14.6); RBC Distribution Width SD 40.3 fl (35.1-43.9); Red Blood Count 4.47 M/mm3 (4.2-5.4); White Blood Count 8.2 K/mm3 (4.4-11.0)
[2021-11-16 17:54] LABS: Anion Gap 4 (5-15); BUN 10 mg/dL (7-18); Calcium,Total 8.7 mg/dL (8.5-10.1); Chloride 110 mmol/L (98-107); Creatinine, Serum 0.62 mg/dL (0.55-1.02); EST Glomerular Filtration Rate 116 mL/min (>60); Est Glom Filt Rate - Afr Amer 141 mL/min (>60); Estimated Creatinine Clearance 97.39 ml/min; Glucose 99 mg/dL (74-106); Potassium 3.6 mmol/L (3.5-5.1); Sodium Level 141 mmol/L (136-145)
[2021-11-16] MEDS: Smz/Tmp Ds Tablet 1 TABLET PO (18:49)
== END 2021-11-16 18:50 | disposition home or self-care (01) ==
PROVIDERS: Emergency Provider Emergency Medicine; PCP Internal Medicine; Visit Provider Emergency Medicine
DX: N13.2 Hydronephrosis with renal and ureteral calculous obstruction (principal); F31.9 Bipolar disorder, unspecified; I10 Essential (primary) hypertension; F17.210 Nicotine dependence, cigarettes, uncomplicated; Z79.899 Other long term (current) drug therapy; Z87.442 Personal history of urinary calculi
CPT/HCPCS: 74176; 80048; 81001; 85025; 87086; 87088; 87186; 96374; 99285; J7030; A4216

== ENCOUNTER → 2022-07-13 | Outpatient (CLI) | payer OTHER, SELFPAY ==
[2022-07-13 12:26] LABS: Absolute Lymphocyte Count 2.63 X10^3/uL (0.83-4.51); Absolute Neutrophil Count 5.8 X10^3/uL (2.0-7.7); Basophil# 0.06 X10^3/uL; Basophil% 0.6 % (0-1); Eosinophil# 0.13 X10^3/uL; Eosinophils% 1.4 % (0-5); Hematocrit 44.7 % (37-47); Hemoglobin 14.3 g/dL (12.0-15.0); Lymphocyte # 2.63 X10^3/ul (0.83-4.51); Lymphocyte % 27.6 % (19-41); Mean Corpuscular Hgb 27.3 pg (27.0-32.0); Mean Corpuscular Volume 85.5 fL (81-99); Mean Platelet Vol. 10.7 fl (6.2-12.0); Monocyte# 0.85 X10^3/uL; Monocyte% 8.9 % (0-10); NRBC Flagged by Analyzer 0 % (0-5); Platelet Count 358 K/mm3 (150-450); RBC Distribution Width SD 40.1 fl (35.1-43.9); Red Blood Count 5.23 M/mm3 (4.2-5.4); White Blood Count 9.5 K/mm3 (4.4-11.0)
[2022-07-13 13:36] LABS: ALB/GLOB Ratio 1.1 RATIO (0.9-2.4); AST(SGOT) 16 U/L (15-37); Alanine Aminotransfer ALT/SGPT 24 U/L (13-56); Albumin, Serum 3.9 g/dL (3.2-5.0); Alkaline Phosphatase 91 U/L (45-117); Anion Gap 9 (5-15); BUN 13 mg/dL (7-18); BUN/Creat Ratio 17.1 RATIO (10-20); Chloride 103 mmol/L (98-107); Cholesterol 148 mg/dL (200); Creatinine, Serum 0.76 mg/dL (0.55-1.02); EST Glomerular Filtration Rate 92 mL/min (>60); Est Glom Filt Rate - Afr Amer 112 mL/min (>60); Globulin 3.7 g/dL (2.2-4.2); Glucose 119 mg/dL (74-106); High Density Lipoprotein 66 mg/dL; Potassium 4.1 mmol/L (3.5-5.1); Protein, Total 7.6 g/dL (6.4-8.2); Sodium Level 137 mmol/L (136-145); Triglycerides 64 mg/dL; Very Low Density Lipoprotein 13 mg/dL (5-40)
[2022-07-13 14:03] LABS: Hemoglobin A1c 5.4 % (3.8-5.6)
== END | disposition home or self-care (01) ==
LOC: BIMLAB 09:30
PROVIDERS: PCP Internal Medicine; Referring Provider Internal Medicine; Visit Provider Internal Medicine
DX: I10 Essential (primary) hypertension (principal); E66.9 Obesity, unspecified
CPT/HCPCS: 36415; 80053; 80061; 83036; 85025

== ENCOUNTER → 2022-08-12 | Outpatient (CLI) | payer OTHER, SELFPAY ==
[2022-08-12 17:06] LABS: Anion Gap 9 (5-15); BUN 13 mg/dL (7-18); BUN/Creat Ratio 22.7 RATIO (10-20); Calcium,Total 9.2 mg/dL (8.5-10.1); Chloride 105 mmol/L (98-107); Creatinine, Serum 0.57 mg/dL (0.55-1.02); EST Glomerular Filtration Rate 128 mL/min (>60); Est Glom Filt Rate - Afr Amer 155 mL/min (>60); Glucose 112 mg/dL (74-106); Potassium 3.8 mmol/L (3.5-5.1); Sodium Level 140 mmol/L (136-145)
== END | disposition home or self-care (01) ==
LOC: BIMLAB 15:47
PROVIDERS: PCP Internal Medicine; Referring Provider Internal Medicine; Visit Provider Internal Medicine
DX: I10 Essential (primary) hypertension (principal)
CPT/HCPCS: 36415; 80048

== ENCOUNTER 2022-10-14 15:00 | Outpatient (RCR) | payer OTHER, MEDICAID, SELFPAY ==
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
--- NOTE | 2023-03-31 13:23 | HP.PTDCSUM ---
Discharge Summary D/C summary: It has been my pleasure to treat CASSIDY CHASE referred by Dr. Marichuy Johnson MD, with the diagnosis of RADICULOPATHY ,LUMBAR for a total of 7 visit(s). Discharge Date: Please see the following information for a summary of their discharge status. Subjective Subjective: Doing okay doing some better Pain Bilateral Back: Pain Intensity (Out of 10): 5 Overall Improvement % Improvement: 20 Objective Objective/Function: Did well with ex' and modalities with pain decreased Goals Goal 1:: I with HEP for lumbar Goal Progress: Progressing Goal 2:: Patient to demonstrate 50% improvement with decrease pain and improved function Goal Progress: Progressing Goal 3:: Patient to improve lumbar ROM for function of recovery for job demands Goal Progress: Progressing Goal 4:: Patient to improve posture /body mechanics 80% of the time Goal Progress: Progressing Goal 5:: Patient bonita improve back oswestry score by 5 points to improve QOL and function Goal Progress: Progressing Plan Plan: D/C D/C Information d/c sentence: If there are questions or concerns regarding this patient's physical therapy, please feel free to call me at [phone]. Thank you for the referral of this patient. Sincerely, Gary Crandall, PT, Cert MDT, OCS Balance/Gait/Functional tests Balance/Special Test Scores Oswestry Low Back Score: 19
== END 2022-10-14 19:00 | disposition home or self-care (01) ==
LOC: PT 15:00
PROVIDERS: PCP Internal Medicine; Referring Provider Internal Medicine; Visit Provider Internal Medicine
DX: M54.16 Radiculopathy, lumbar region (principal)
CPT/HCPCS: 97014; 97035; 97110; 97162; G0283

== ENCOUNTER → 2022-12-09 | Outpatient (CLI) | payer MEDICAID, SELFPAY ==
--- NOTE | 2022-12-09 13:45 | RAD_ITS ---
INDICATION: Chronic Back Pain EXAMINATION/TECHNIQUE: X-RAY - XR Spine Lumbar Min 4 Views COMPARISON: None. FINDINGS: VERTEBRAE: Moderate anterior osteophyte formation throughout the lumbar spine. Incomplete fusion of the apophysis anterior superior L3 vertebral body. Oblique views demonstrate no evidence of spondylolysis. Moderate loss of disc space height L5-S1. INCLUDED ABDOMEN: Included bowel gas pattern is non-obstructive. RAD/L/S Spine Min 4 Views IMPRESSION: Degenerative changes as above. Electronically Signed: Federico Noel MD, ABDIFATAH at 16:09 EDT ,
== END | disposition home or self-care (01) ==
PROVIDERS: PCP Internal Medicine; Visit Provider Internal Medicine
DX: M54.16 Radiculopathy, lumbar region (principal)
CPT/HCPCS: 72110

== ENCOUNTER → 2023-03-24 | Outpatient (CLI) | payer MEDICAID, SELFPAY ==
--- NOTE | 2023-03-24 15:38 | MRI_ITS ---
INDICATION: RADICULOPATHY, low back pain EXAMINATION: MRI - MR Spine Lumbar W/O Contrast TECHNIQUE: Multiplanar and multisequence MR images of the lumbar spine. IV Contrast Dosage and Agent: None. COMPARISON: Lumbar spine radiographs of 12/09/2022. Abdominal pelvic CT of 11/16/2021.. FINDINGS: VERTEBRAE: Vertebral body heights are preserved. Normal vertebral bodies and posterior elements. Minimal lower lumbar facet arthritis. VERTEBRAL ALIGNMENT: No spondylolisthesis. There is preservation of the normal lumbar lordosis. CORD: Normal position and signal intensity of the conus medullaris. Nerve roots within the cauda equina do not appear abnormally thickened or clumped. T11/12: Unremarkable. T12/L1: Unremarkable. L1/L2: Normal disc height and morphology. Normal spinal canal, lateral recesses and neuroforamina. L2/L3: Normal disc height and morphology. Normal spinal canal, lateral recesses and neuroforamina. Mild degenerative spurring about the L2/3 disc space. L3/L4: Normal disc height and morphology. Normal spinal canal, lateral recesses and neuroforamina. L4/L5: Normal disc height and morphology. Normal spinal canal, lateral recesses and neuroforamina. L5/S1: Mild disc degeneration/dehydration. Mild broad-based annular bulge and minimal central disc protrusion at this level, extending into the presacral fat but without mass effect upon the thecal sac. As on the CT of 11/11, there is moderate asymmetric narrowing of the inferior left neural foramen at this level by a broad-based foraminal and extraforaminal disc protrusion along with posterolateral osteophytes. This posterolateral disc protrusion at L5/S1 mildly displaces the exiting left L5 nerve sleeve. SOFT TISSUES: No paraspinal soft tissue swelling. The psoas muscles are symmetric. Visualized abdominal aorta is normal caliber. No hydronephrosis is noted. MRI/Spine Lumbar (Routine) IMPRESSION: Asymmetric narrowing of the inferior left neural foramen at L5/S1 by a broad-based foraminal to extraforaminal disc protrusion and surrounding posterolateral osteophytes, with mild displacement the exiting left L5 nerve root sleeve. No disc extrusion or thecal sac stenosis identified. Electronically Signed: Zachery Mejia MD at 5:56 EDT ,
== END | disposition home or self-care (01) ==
LOC: MRI 15:34
PROVIDERS: PCP Internal Medicine; Referring Provider Anesthesiology Pain Medicine; Visit Provider Anesthesiology Pain Medicine
DX: M54.17 Radiculopathy, lumbosacral region (principal)
CPT/HCPCS: 72148